=== PATIENT | female | born 1970 | race Caucasian/White ===

== ENCOUNTER → 2016-12-14 | Outpatient (CLI) | payer BC ==
--- NOTE | 2016-12-17 08:40 | REP ---
MRI RIGHT HIP WITHOUT CONTRAST: HISTORY: Right hip osteoarthritis. Right hip pain. No known injury. No comparison radiographs are available. TECHNIQUE: Coronal T1 and fat sat T2 STIR images of both hips are acquired. Smaller field of view high resolution proton density and T2-weighted fat sat imaging of the right hip is acquired in all three planes. MRI FINDINGS: There are several Nabothian cysts in the cervix. No pelvic mass or free fluid or adenopathy is seen. There is a small cystic area in the right ovary, 1.8 cm. No abdominal wall defect is seen. The visualized bony pelvic ring is intact. No significant hip joint effusion is seen on either side. There is mild soft tissue edema in the soft tissues adjacent to the greater trochanter on both sides which may reflect tendonitis or bursitis. This is more prominent on the right. There are multiple subcortical cysts in the acetabulum on the right and there is some diffuse cartilage loss consistent with osteoarthropathy. Early marginal osteophyte formation is seen. No cartilage labral disruption is appreciated. Ligamentum teres appears to be intact. There is no evidence of avascular necrosis or bony destructive lesion. T2-weighted STIR images demonstrate some T2 hyperintensity at the common tendon insertion of the hamstring mechanism on the right side. No vascular abnormality is seen. T2-weighted STIR images demonstrate multiple subcortical cysts in the acetabulum on the left side as well consistent with essentially symmetric arthropathy. IMPRESSION: Findings most consistent with bilateral hip joint osteoarthritis. There is also evidence of tendonitis at the hamstring insertion on the ischium and at the greater trochanter on the right side. Signed by Levi Parker MD 12/17/2016 12:57 P
== END ==
LOC: M RAD 16:36
PROVIDERS: ATTEND Orthopaedic Surgery
DX: M16.11 Unilateral primary osteoarthritis, right hip (principal)

== ENCOUNTER → 2016-12-26 | Outpatient (REF) | payer BC ==
[2016-12-26 18:43] LABS: ALBUMIN/GLOBULIN RATIO 1.43 (1.00-1.93); ALKALINE PHOSPHATASE 98 U/L (45-117); ALT/SGPT 28 U/L (12-78); ANION GAP 8 MEQ/L (8-16); AST/SGOT 17 U/L (15-37); BILIRUBIN,TOTAL 0.5 MG/DL (0.2-1.0); BLOOD UREA NITROGEN 11 MG/DL (7-18); CALCIUM LEVEL 8.7 MG/DL (8.5-10.1); CARBON DIOXIDE LEVEL 24 MEQ/L (21-32); CHLORIDE LEVEL 107 MEQ/L (98-107); CHOLESTEROL LEVEL 162 MG/DL (<200); CREATININE FOR GFR 0.88 MG/DL (0.55-1.02); FREE T4 1.04 NG/DL (0.76-1.46); GLOMERULAR FILTRATION RATE > 60.0 (>58); GLUCOSE, FASTING 88 MG/DL (70-105); SODIUM LEVEL 139 MEQ/L (136-145); TOTAL PROTEIN 6.8 GM/DL (6.4-8.2); TRIGLYCERIDES LEVEL 162 MG/DL (<150)
[2016-12-26 19:52] LABS: BASO # 0.1 K/mm3 (0.0-0.2); BASO % 0.9 % (0.0-1.0); EOS # 0.2 K/mm3 (0.0-0.50); EOS % 3.3 % (0.0-3.0); LARGE UNSTAINED CELL # 0.1 K/mm3 (0.0-0.4); LARGE UNSTAINED CELL % 1.4 % (0.0-4.0); LYMPH # 1.5 K/mm3 (1.5-4.5); LYMPH % 21.7 % (24.0-44.0); MEAN CORPUSCULAR HEMOGLOBIN 33.2 pg (27.0-33.0); MEAN CORPUSCULAR HGB CONC 34.7 g/dl (32.0-36.5); MEAN CORPUSCULAR VOLUME 95.5 fl (80.0-96.0); MONO # 0.4 K/mm3 (0.0-0.8); MONO % 5.7 % (0.0-5.0); NEUTROPHILS # 4.8 K/mm3 (1.8-7.7); PLATELET COUNT, AUTOMATED 326 k/mm3 (150-450); RED CELL DISTRIBUTION WIDTH 12.7 % (11.5-14.5); WHITE BLOOD COUNT 7.1 K/mm3 (4.0-10.0)
== END ==
LOC: M SFHCCAPE 06:59
PROVIDERS: ATTEND Physician Assistant
DX: E78.2 Mixed hyperlipidemia (principal)

== ENCOUNTER → 2017-06-24 | Outpatient (REF) | payer BC | LOC: M SFHCCAPE 16:29 | PROVIDERS: ATTEND Physician Assistant | DX: R30.0 Dysuria (principal) ==

== ENCOUNTER → 2017-07-01 | Outpatient (REF) | payer BC ==
[2017-07-01 17:52] LABS: ALBUMIN 3.7 GM/DL (3.2-5.2); ALBUMIN/GLOBULIN RATIO 1.06 (1.00-1.93); BILIRUBIN,TOTAL 0.4 MG/DL (0.2-1.0); CALCIUM LEVEL 8.7 MG/DL (8.5-10.1); CREATININE FOR GFR 1.05 MG/DL (0.55-1.02); FREE T4 0.81 NG/DL (0.76-1.46); GLOMERULAR FILTRATION RATE 59.3 (>58); POTASSIUM SERUM 4.1 MEQ/L (3.5-5.1); TOTAL PROTEIN 7.2 GM/DL (6.4-8.2)
== END ==
LOC: M SFHCCAPE 07:09
PROVIDERS: ATTEND Physician Assistant
DX: E78.2 Mixed hyperlipidemia (principal); E03.9 Hypothyroidism, unspecified

== ENCOUNTER → 2017-09-16 | Outpatient (CLI) | payer BC | LOC: M WUC 15:04 | DX: J40 Bronchitis, not specified as acute or chronic (principal) | CPT/HCPCS: 71046 ==

== ENCOUNTER → 2017-10-01 | Outpatient (REF) | payer BC ==
[2017-10-01 16:22] LABS: BASO # 0.1 10^3/uL (0.0-0.2); BASO % 0.7 % (0.0-1.0); EOS # 0.2 10^3/uL (0.0-0.50); EOS % 1.6 % (0.0-3.0); HEMATOCRIT 40.7 % (36.0-47.0); HEMOGLOBIN 14.1 g/dl (12.0-16.0); IMMATURE GRANULOCYTE % 0.6 % (0-3.0); LYMPH # 2.3 10^3/uL (1.5-4.5); LYMPH % 23.7 % (24.0-44.0); MEAN CORPUSCULAR HEMOGLOBIN 32.6 pg (27.0-33.0); MEAN CORPUSCULAR HGB CONC 34.6 g/dl (32.0-36.5); MONO # 0.7 10^3/uL (0.0-0.8); MONO % 7.2 % (0.0-5.0); NEUTROPHILS # 6.4 10^3/uL (1.8-7.7); NEUTROPHILS % 66.2 % (36.0-66.0); PLATELET COUNT, AUTOMATED 305 10^3/uL (150-450); RED BLOOD COUNT 4.33 10^6/uL (4.00-5.40); RED CELL DISTRIBUTION WIDTH 12.4 % (11.5-14.5); WHITE BLOOD COUNT 9.7 10^3/uL (4.0-10.0)
[2017-10-01 16:44] LABS: ALBUMIN 3.4 GM/DL (3.2-5.2); ALKALINE PHOSPHATASE 84 U/L (45-117); ALT/SGPT 21 U/L (12-78); ANION GAP 6 MEQ/L (8-16); AST/SGOT 13 U/L (7-37); BILIRUBIN,TOTAL 0.5 MG/DL (0.2-1.0); BLOOD UREA NITROGEN 14 MG/DL (7-18); CALCIUM LEVEL 8.4 MG/DL (8.5-10.1); CARBON DIOXIDE LEVEL 26 MEQ/L (21-32); CHLORIDE LEVEL 112 MEQ/L (98-107); CHOLESTEROL LEVEL 203 MG/DL (<200); CHOLESTEROL RISK RATIO 4.613 (<5); CREATININE FOR GFR 0.84 MG/DL (0.55-1.30); FREE T4 0.83 NG/DL (0.76-1.46); GLOMERULAR FILTRATION RATE > 60.0 (>58); GLUCOSE, FASTING 90 MG/DL (70-100); HDL CHOLESTEROL 44 MG/DL (>40); LDL CHOLESTEROL 95.2 MG/DL (<100); NON-HDL-C 159 MG/DL; POTASSIUM SERUM 4.3 MEQ/L (3.5-5.1); SODIUM LEVEL 144 MEQ/L (136-145); TOTAL PROTEIN 6.8 GM/DL (6.4-8.2); TRIGLYCERIDES LEVEL 319 MG/DL (<150)
== END ==
LOC: M SFHCCAPE 07:33
DX: E78.2 Mixed hyperlipidemia (principal); E03.9 Hypothyroidism, unspecified
CPT/HCPCS: 84443

== ENCOUNTER → 2018-02-06 | Outpatient (CLI) | payer BC | LOC: M WHC 06:42 | DX: Z12.31 Encounter for screening mammogram for malignant neoplasm of breast (principal) | CPT/HCPCS: 77067 ==

== ENCOUNTER 2018-03-26 12:18 | Outpatient (RCR) | payer BC | END 2018-04-13 | LOC: M PT 04-03 13:15 | DX: M54.5 Low back pain (principal); M16.11 Unilateral primary osteoarthritis, right hip; G89.29 Other chronic pain | CPT/HCPCS: 97010 ==

== ENCOUNTER 2018-04-15 07:26 | Outpatient (RCR) | payer BC | END 2018-05-14 | LOC: M PT 04-17 07:30 | DX: M54.5 Low back pain (principal); M16.11 Unilateral primary osteoarthritis, right hip; G89.29 Other chronic pain | CPT/HCPCS: 97110 ==

== ENCOUNTER → 2018-04-23 | Outpatient (REF) | payer BC ==
[2018-04-25 16:53] LABS: HPV HYBRID CAPTURE II Negative (Negative)
== END ==
LOC: M SFHCWAGY 08:45
DX: Z12.4 Encounter for screening for malignant neoplasm of cervix (principal)
CPT/HCPCS: G0123

== ENCOUNTER → 2018-07-01 | Outpatient (REF) | payer BC ==
[2018-07-01 17:23] LABS: BASO # 0.1 10^3/uL (0.0-0.2); EOS # 0.1 10^3/uL (0.0-0.50); EOS % 1.5 % (0.0-3.0); HEMATOCRIT 41.7 % (36.0-47.0); HEMOGLOBIN 14.1 g/dl (12.0-15.5); LYMPH # 1.8 10^3/uL (1.5-4.5); LYMPH % 21.4 % (24.0-44.0); MEAN CORPUSCULAR HGB CONC 33.8 g/dl (32.0-36.5); MEAN CORPUSCULAR VOLUME 94.8 fl (80.0-96.0); MONO # 0.6 10^3/uL (0.0-0.8); MONO % 7.1 % (0.0-5.0); NEUTROPHILS # 5.8 10^3/uL (1.8-7.7); NEUTROPHILS % 68.6 % (36.0-66.0); PLATELET COUNT, AUTOMATED 324 10^3/uL (150-450); WHITE BLOOD COUNT 8.4 10^3/uL (4.0-10.0)
[2018-07-01 17:44] LABS: ALBUMIN 3.6 GM/DL (3.2-5.2); ALT/SGPT 28 U/L (12-78); BILIRUBIN,TOTAL 0.3 MG/DL (0.2-1.0); BLOOD UREA NITROGEN 16 MG/DL (7-18); CALCIUM LEVEL 8.5 MG/DL (8.5-10.1); CARBON DIOXIDE LEVEL 26 MEQ/L (21-32); CHLORIDE LEVEL 108 MEQ/L (98-107); CHOLESTEROL LEVEL 184 MG/DL (<200); CREATININE FOR GFR 0.99 MG/DL (0.55-1.30); GLOMERULAR FILTRATION RATE > 60.0 (>51); GLUCOSE, FASTING 93 MG/DL (70-100); HDL CHOLESTEROL 40 MG/DL (>40); LDL CHOLESTEROL 101 MG/DL (<100); NON-HDL-C 144 MG/DL; POTASSIUM SERUM 4.2 MEQ/L (3.5-5.1); SODIUM LEVEL 142 MEQ/L (136-145); TRIGLYCERIDES LEVEL 214 MG/DL (<150)
== END ==
LOC: M SFHCCAPE 07:01
PROVIDERS: ATTEND Physician Assistant
DX: E78.2 Mixed hyperlipidemia (principal); E03.9 Hypothyroidism, unspecified

== ENCOUNTER 2018-09-10 06:31 | Day surgery (SDC) | payer BC ==
[~2018-09-10] VITALS: Ht 162.6 cm; Wt 91.2 kg
[~2018-09-10 06:31] MED LIST: NS 1,000 ML IV ONE
[2018-09-10] MEDS ORDERED: LIDOCAINE 2% INJ 100 MG/5 ML SDV (FOR ANES.) As Ordered ONE (07:00)
[2018-09-10] MEDS ORDERED: PROPOFOL 200 MG/20 ML VIAL As Ordered ONE (07:00)
[2018-09-10] MEDS ORDERED: LEVO75TA4 PO (07:44)
[2018-09-10] MEDS ORDERED: PRAV40TA2 PO (07:44)
[2018-09-10] MEDS ORDERED: CENTCHW3 PO (07:44)
--- NOTE | 2018-09-10 08:36 | ROOR ---
Patient Name: Giancarlo Govea Procedure Date: 09/10/2018 8:01 AM Date of : 1970 Age: 48 [facility] Gender: Female Note Status: Finalized Procedure: Colonoscopy Indications: Screening for colorectal malignant neoplasm Providers: Myles Chávez MD Referring MD: Ramin Joseph Requesting Provider: Medicines: Monitored Anesthesia Care Complications: No immediate complications. Procedure: Pre-Anesthesia Assessment: - Prior to the procedure, a History and Physical was performed, and patient medications and allergies were reviewed. The patient is competent. The risks and benefits of the procedure and the sedation options and risks were discussed with the patient. All questions were answered and informed consent was obtained. Patient identification and proposed procedure were verified by the physician, the nurse and the anesthesiologist in the endoscopy suite. Mental Status Examination: alert and oriented. Airway Examination: normal oropharyngeal airway and neck mobility. Respiratory Examination: clear to auscultation. CV Examination: normal. Prophylactic Antibiotics: The patient does not require prophylactic antibiotics. Prior Anticoagulants: The patient has taken no previous anticoagulant or antiplatelet agents. ASA Grade Assessment: II - A patient with mild systemic disease. After reviewing the risks and benefits, the patient was deemed in satisfactory condition to undergo the procedure. The anesthesia plan was to use monitored anesthesia care (MAC). Immediately prior to administration of medications, the patient was re-assessed for adequacy to receive sedatives. The heart rate, respiratory rate, oxygen saturations, blood pressure, adequacy of pulmonary ventilation, and response to care were monitored throughout the procedure. The physical status of the patient was re-assessed after the procedure. The Colonoscope was introduced through the anus and advanced to the cecum, identified by appendiceal orifice and ileocecal valve. The colonoscopy was performed without difficulty. The patient tolerated the procedure well. The quality of the bowel preparation was good. Findings: Hemorrhoids were found on perianal exam. A few small-mouthed diverticula were found in the sigmoid colon, descending colon and transverse colon. A diminutive polyp was found in the transverse colon. The polyp was flat. The polyp was removed with a cold snare. Resection and retrieval were complete. Estimated blood loss was minimal. A diminutive polyp was found in the sigmoid colon. The polyp was sessile. The polyp was removed with a cold snare. Resection and retrieval were complete. No biopsies or other specimens were collected for this exam. No additional abnormalities were found on retroflexion. Impression: - Hemorrhoids found on perianal exam. - Diverticulosis in the sigmoid colon, in the descending colon and in the transverse colon. - One diminutive polyp in the transverse colon, removed with a cold snare. Resected and retrieved. - One diminutive polyp in the sigmoid colon, removed with a cold snare. Resected and retrieved. No specimens collected. Recommendation: - Discharge patient to home (ambulatory). - Repeat colonoscopy in 5 years for surveillance. - Telephone my office for pathology results in 1 week. Myles Chávez MD Myles Chávez MD 09/10/2018 8:36:10 AM This report has been signed electronically. Number of Addenda: 0 Note Initiated On: 09/10/2018 8:01 AM Estimated Blood Loss: Estimated blood loss was minimal.
[2018-09-10 09:00] VITALS: BP 130/80
== END 2018-09-10 09:23 | disposition home or self-care (01) ==
LOC: M OPP 06:31
PROVIDERS: ATTEND Surgery
DX: Z12.11 Encounter for screening for malignant neoplasm of colon (principal); K64.9 Unspecified hemorrhoids; D12.3 Benign neoplasm of transverse colon; D12.5 Benign neoplasm of sigmoid colon; K57.30 Diverticulosis of large intestine without perforation or abscess without bleeding; F17.210 Nicotine dependence, cigarettes, uncomplicated; Z88.0 Allergy status to penicillin

== ENCOUNTER → 2019-02-26 | Outpatient (REF) | payer BC ==
[~2019-02-26] MED LIST changes: +CENTCHW3 PO; +IBUP80TA PO; +LEVO75TA4 PO; +LEVO88TA3 PO; -NS 1,000 ML IV ONE; +PERC5TAB12 PO; +PRAV20TA2 PO; +PRAV40TA2 PO; +XARE10TA PO
[2019-02-26 17:32] LABS: BASO # 0.1 10^3/uL (0.0-0.2); EOS # 0.1 10^3/uL (0.0-0.50); EOS % 2.2 % (0.0-3.0); HEMATOCRIT 34.8 % (36.0-47.0); HEMOGLOBIN 11.9 g/dl (12.0-15.5); LYMPH # 2.2 10^3/uL (1.5-4.5); LYMPH % 35.6 % (24.0-44.0); MEAN CORPUSCULAR HGB CONC 34.2 g/dl (32.0-36.5); MEAN CORPUSCULAR VOLUME 93.5 fl (80.0-96.0); MONO # 0.5 10^3/uL (0.0-0.8); MONO % 7.3 % (0.0-5.0); NEUTROPHILS # 3.4 10^3/uL (1.8-7.7); NEUTROPHILS % 53.6 % (36.0-66.0); PLATELET COUNT, AUTOMATED 281 10^3/uL (150-450); RED BLOOD COUNT 3.72 10^6/uL (4.00-5.40); WHITE BLOOD COUNT 6.3 10^3/uL (4.0-10.0)
[2019-02-26 18:57] LABS: ALBUMIN 3.7 GM/DL (3.2-5.2); ALT/SGPT 19 U/L (12-78); BILIRUBIN,TOTAL 0.4 MG/DL (0.2-1.0); BLOOD UREA NITROGEN 15 MG/DL (7-18); CALCIUM LEVEL 8.8 MG/DL (8.5-10.1); CARBON DIOXIDE LEVEL 28 MEQ/L (21-32); CHLORIDE LEVEL 110 MEQ/L (98-107); CHOLESTEROL LEVEL 156 MG/DL (<200); CHOLESTEROL RISK RATIO 3.466 (<5); CREATININE FOR GFR 0.86 MG/DL (0.55-1.30); FREE T4 0.84 NG/DL (0.76-1.46); GLOMERULAR FILTRATION RATE > 60.0 (>51); GLUCOSE, FASTING 86 MG/DL (70-100); HDL CHOLESTEROL 45 MG/DL (>40); LDL CHOLESTEROL 83 MG/DL (<100); NON-HDL-C 111 MG/DL; SODIUM LEVEL 144 MEQ/L (136-145); TOTAL PROTEIN 6.6 GM/DL (6.4-8.2); TRIGLYCERIDES LEVEL 142 MG/DL (<150)
== END ==
LOC: M SFHCCAPE 07:04
PROVIDERS: ATTEND Physician Assistant
DX: E78.2 Mixed hyperlipidemia (principal); E03.9 Hypothyroidism, unspecified

== ENCOUNTER → 2019-03-24 | Outpatient (CLI) | payer BC ==
[~2019-03-24] MED LIST changes: -PERC5TAB12 PO; -XARE10TA PO
[2019-03-24 09:04] LABS: HEMATOCRIT 38.8 % (36.0-47.0); HEMOGLOBIN 13.7 g/dl (12.0-15.5); MEAN CORPUSCULAR HEMOGLOBIN 33.6 pg (27.0-33.0); MEAN CORPUSCULAR HGB CONC 35.3 g/dl (32.0-36.5); MEAN CORPUSCULAR VOLUME 95.1 fl (80.0-96.0); PLATELET COUNT, AUTOMATED 254 10^3/uL (150-450); RED BLOOD COUNT 4.08 10^6/uL (4.00-5.40); WHITE BLOOD COUNT 6.1 10^3/uL (4.0-10.0)
[2019-03-24 09:15] LABS: INR 0.99; PROTHROMBIN TIME 12.8 SECONDS (11.8-14.0)
[2019-03-24 09:39] LABS: ALT/SGPT 27 U/L (12-78); BILIRUBIN,TOTAL 0.4 MG/DL (0.2-1.0); BLOOD UREA NITROGEN 15 MG/DL (7-18); CALCIUM LEVEL 9.3 MG/DL (8.5-10.1); CARBON DIOXIDE LEVEL 28 MEQ/L (21-32); CHLORIDE LEVEL 109 MEQ/L (98-107); CREATININE FOR GFR 0.95 MG/DL (0.55-1.30); GLOMERULAR FILTRATION RATE > 60.0 (>51); GLUCOSE, FASTING 90 MG/DL (70-100); POTASSIUM SERUM 4.6 MEQ/L (3.5-5.1); SODIUM LEVEL 144 MEQ/L (136-145)
[2019-03-24 09:40] LABS: ERYTHROCYTE SEDIMENTATION RATE 29 mm/hr (0-30)
--- NOTE | 2019-03-24 11:56 | REP ---
CHEST, TWO VIEWS: There is no evidence of acute infiltrate. No pleural effusion is seen. The heart is normal in size. The mediastinal silhouette is unremarkable. The visualized osseous structures are intact. IMPRESSION: No acute pulmonary disease. Electronically Signed by Jared Yo MD 03/25/2019 11:17 A
--- NOTE | 2019-03-24 18:23 | ECGEPIP ---
[facility] Test Date: 2019-03-24 Pat Name: LORI CHENG Department: Room: - Gender: Female Etcher Photoengraving: MICHI : 1970 Requested By: Myron Marie Order Number: [id number] Reading MD: John Barber Measurements Intervals [place] Rate: 50 P: 61 MS: 149 QRS: 44 QRSD: 102 T: 37 QT: 415 QTc: 382 Interpretive Statements SINUS BRADYCARDIA Otherwise normal Electronically Signed on 03-24-2019 18:23:20 EDT by John Barber
== END ==
LOC: M LAB 08:33
PROVIDERS: ATTEND Orthopaedic Surgery
DX: Z01.818 Encounter for other preprocedural examination (principal)

== ENCOUNTER → 2019-04-01 | Outpatient (CLI) | payer BC ==
--- NOTE | 2019-04-01 13:34 | REPMRS ---
Patient History The patient states she has not had a clinical breast exam in over a year. Family history of ovarian cancer under age 50 in maternal half sister. Benign US guided breast biopsy of the right breast, January 11, 2012. Took hormonal contraceptives for 1 year. 3D TOMOSYNTHESIS WAS PERFORMED. [facility] lifetime risk for breast cancer is 8.0%. Digital Woman Screen Mammo: April 01, 2019 - Exam #: [id number] Bilateral CC and MLO view(s) were taken. Technologist: Yoly Townsend, Technologist Prior study comparison: February 06, 2018, bilateral digital woman screen mammo performed at [facility]. June 03, 2014, digital woman screen mammo [facility]. FINDINGS: The breast tissue is heterogeneously dense. This may lower the sensitivity of mammography. There has been no change in the appearance of the mammogram from the prior studies. There is a moderate amount of residual fibroglandular tissue which is fairly symmetric. There is no interval development of dominant mass, areas of architectural distortion, or clustered microcalcification typical of malignancy. Assessment: BI-RADS/ACR category 1 mammogram. Negative Mammogram. Recommendation Routine screening mammogram in 1 year (for women over age 40). This mammogram was interpreted with the aid of an FDA-approved computer-aided dectection system. Electronically Signed By: Jared Yo MD 04/01/19 [id number]
== END ==
LOC: M WHC 11:21
PROVIDERS: ATTEND Physician Assistant
DX: Z12.31 Encounter for screening mammogram for malignant neoplasm of breast (principal)

== ENCOUNTER 2019-04-13 06:04 | Inpatient (IN) | payer BC ==
[~2019-04-13] VITALS: Ht 162.6 cm; Wt 79.3 kg
[~2019-04-13 06:04] MED LIST changes: +LEVOTHYROXINE 100MCG TABLET (0.1MG) PO SCH; +LR 1,000 ML IV ONE
[2019-04-13] MEDS ORDERED: ceFAZolin 2 GM/D5W 50 ML IV BAG (J0690 PER 500MG) As Ordered ONE (06:21)
[2019-04-13] MEDS ORDERED: EPINEPHrine INJ 1 MG/ML 1ML AMP As Ordered ONE (06:50)
[2019-04-13] MEDS ORDERED: TRANEXAMIC ACID 100 MG/ML 10ML VIAL As Ordered ONE (06:50)
[2019-04-13] MEDS ORDERED: ceFAZolin 1GM INJ (J0690 PER 500MG) As Ordered ONE (06:50)
[2019-04-13] MEDS ORDERED: BUPIVACAINE/EPIN 0.25% 30 ML VIAL As Ordered ONE (06:50)
[2019-04-13] MEDS ORDERED: BUPIVACAINE HCL 0.5% 10 ML VIAL As Ordered ONE (06:50)
[2019-04-13] MEDS ORDERED: BUPIVACAINE LIPOSOME/PF 1.3% 20ML VIAL (13.3MG/ML)(EXPAREL)(C9290 PER1MG) As Ordered ONE (06:51)
[2019-04-13] MEDS ORDERED: PROPOFOL 200 MG/20 ML VIAL As Ordered ONE ×3 (07:11→11:08)
[2019-04-13] MEDS ORDERED: LIDOCAINE 2% INJ 100 MG/5 ML SDV (FOR ANES.) As Ordered ONE (07:11)
[2019-04-13] MEDS ORDERED: MIDAZOLAM INJ 2 MG/2 ML VIAL (J2250) As Ordered ONE (07:11)
[2019-04-13] MEDS ORDERED: fentaNYL 100 MCG/2 ML INJECTION (J3010) As Ordered ONE (07:12)
[2019-04-13] MEDS ORDERED: ePHEDrine SULFATE 25 MG/5 ML(5MG/ML) SYRINGE As Ordered ONE (08:13)
[2019-04-13] MEDS ORDERED: ONDANSETRON 4MG/2ML VIAL (J2405) As Ordered ONE (08:39)
[2019-04-13] MEDS ORDERED: dexameTHASONE 4 MG/ML 1ML VIAL (J1100) As Ordered ONE (08:39)
[2019-04-13] MEDS ORDERED: ACETAMINOPHEN 1000MG 100ML IV BTL (OFIRMEV) (J0131 PER 10MG) As Ordered ONE (08:39)
[2019-04-13] MEDS ORDERED: KETOROLAC 60 MG/2 ML VIAL (J1885) As Ordered ONE (08:39)
[2019-04-13] MEDS: GABAPENTIN 300 MG CAP PO SCH ×3 (09:00→20:17)
[2019-04-13] MEDS ORDERED: ALBUTEROL 90 MCG/ACT 8GM HFA INHALER INH PRN (09:00)
[2019-04-13] MEDS ORDERED: PRAVASTATIN 20 MG TAB PO SCH ×2 (09:00→21:00)
[2019-04-13] MEDS ORDERED: HYDROMORPHONE HCL 0.5 MG/ 0.5 ML SYRINGE (J1170 PER 1) IV PRN (10:30)
[2019-04-13] MEDS ORDERED: BUPIVACAINE HCL 0.5% 30 ML VIAL As Ordered ONE (10:41)
[2019-04-13] MEDS ORDERED: METOCLOPRAMIDE INJ 10MG/2ML VIAL (J2765) IV PRN (11:00)
[2019-04-13] MEDS ORDERED: ONDANSETRON 4MG/2ML VIAL (J2405) IV PRN (11:00)
[2019-04-13] MEDS ORDERED: PROMETHAZINE INJ 25 MG/ML VIAL (J2550) IV PRN ×2 (11:00)
[2019-04-13] MEDS ORDERED: oxyCODONE 5MG TAB PO PRN (11:00)
[2019-04-13] MEDS ORDERED: fentaNYL 100 MCG/2 ML INJECTION (J3010) IV PRN (11:00)
[2019-04-13] MEDS ORDERED: ACETAMINOPHEN TAB 650MG DOSE (2X325MG) PO PRN (11:00)
[2019-04-13] MEDS ORDERED: FLEET ENEMA PR PRN (11:15)
--- NOTE | 2019-04-13 11:18 | REP ---
REASON: Postoperative. There has been a total hip prosthetic device placed the femoral and acetabular components of which are well seated and well approximated. The alignment is near anatomical. There is expected postoperative soft tissue swelling. IMPRESSION: Status post THR. Electronically Signed by Eloy Banda DO 04/13/2019 02:37 P
[2019-04-13] MEDS ORDERED: CelecoXIB 400 MG CAP PO ONE ×2 (12:00→13:00)
[2019-04-13] MEDS ORDERED: CYCLOBENZAPRINE 10 MG TAB PO PRN (13:00)
[2019-04-13 13:29] VITALS: BP 112/60
[2019-04-13 13:59] VITALS: BP 118/65
[2019-04-13 15:00] VITALS: BP 114/64
[2019-04-13 16:00] VITALS: BP 115/65
[2019-04-13] MEDS: ceFAZolin SOD 2 GM in IV 1 EA IV SCH (16:19)
[2019-04-13] MEDS: PERCOCET 5MG/325MG TAB PO PRN ×2 (16:35→20:40)
[2019-04-13] MEDS: MIRALAX *UNIT DOSE* 17GM PACKET PO SCH (17:10)
[2019-04-13] MEDS: MOM 30ML SUSPENSION UDC PO SCH (17:10)
[2019-04-13 20:00] VITALS: BP 116/63
[2019-04-13] MEDS: SENOKOT S TAB PO SCH (20:17)
[2019-04-14] MEDS: ceFAZolin SOD 2 GM in IV 1 EA IV SCH (00:52)
[2019-04-14] MEDS: PERCOCET 5MG/325MG TAB PO PRN ×2 (01:38→08:43)
[2019-04-14 02:00] VITALS: BP 95/57
[2019-04-14 04:00] VITALS: BP 97/57
[2019-04-14] MEDS ORDERED: LEVOTHYROXINE 88MCG TABLET (0.088 MG) PO SCH (06:00)
[2019-04-14] MEDS ORDERED: XARE10TA PO (06:22)
[2019-04-14] MEDS ORDERED: PERC5TAB12 PO (06:22)
[2019-04-14 07:02] LABS: HEMATOCRIT 30.8 % (36.0-47.0); HEMOGLOBIN 10.6 g/dl (12.0-15.5); MEAN CORPUSCULAR HEMOGLOBIN 32.8 pg (27.0-33.0); MEAN CORPUSCULAR HGB CONC 34.4 g/dl (32.0-36.5); MEAN CORPUSCULAR VOLUME 95.4 fl (80.0-96.0); PLATELET COUNT, AUTOMATED 237 10^3/uL (150-450); RED BLOOD COUNT 3.23 10^6/uL (4.00-5.40); WHITE BLOOD COUNT 11.4 10^3/uL (4.0-10.0)
--- NOTE | 2019-04-14 08:06 | RO ---
DATE OF PROCEDURE: 04/13/2019 PREOPERATIVE DIAGNOSIS: Osteoarthritis of the right hip. POSTOPERATIVE DIAGNOSIS: Osteoarthritis of the right hip. PROCEDURE PERFORMED: Right total hip replacement. SURGEON: Dr. Myrno Iqbal FAILURE ANALYSIS ENGINEER: Bridger Telles, physician equity sales assistant ANESTHESIA: Spinal. Dr. Penn ESTIMATED BLOOD LOSS: Less than 100. COMPLICATIONS: No complications. INDICATIONS: Progressive discomfort in the right hip going on over a number of years, a number of conservative managements including weight loss and cortisone injections failed to give lasting relief. The patient has elected for operative intervention. CONSENT: Reviewed in detail including a sigrid discussion of the pathology involved, the procedure proposed, alternatives including doing nothing and the risks including, but not limited to pain, failure, dislocation, need for additional surgery, bleeding, blood clots, limp, dislocation and other issues. The patient agreed to proceed. COMPONENTS USED: Include DePuy Fleming system, size 4 femoral stem, size +5 femoral neck. The stem was standard offset, ceramic 36 mm femoral head, 52 mm acetabular component, 52 mm AltrX shell/36 mm inner diameter, apex hole eliminator. OPERATIVE COURSE: Identified in holding area, site and side verified, brought to the operating room. Once spinal anesthesia was administered she was positioned for exposure of the right hip for arthroplasty. This approach is a modified Hardinge approach. She was positioned in the lateral decubitus position on the [place] positioner. Once I and the neurodiagnostic technician were comfortable with the patient's positioning, she was then sterilely prepped and draped in the usual fashion. I stood on the patient's posterior and Mr. López stood on the patient's anterior. We outlined the incision with a marking pen. Mr. López infiltrated 0.25% Marcaine with epinephrine in line of the incision which was based on the greater trochanter. The incision was made by myself with the 10 blade knife and developed down through skin and subcuticular tissues to the lateral fascia. The lateral fascia was divided using the sharp knife as well as the Cohen scissors exposing the abductor mechanism. The abductor mechanism was split at its anterior 1/3 position and I split the capsule and minimus with the hot knife along the femoral neck. I released the anterior 1/3 of the abductor mechanism which was tagged, leaving a cuff of tissue for later repair. The vastus lateralis was also split. Dissection continued opening the capsule. I was able to palpate the lesser trochanter. The reflected head of the vastus was also released. Bone hook was utilized along with Mr. López who assisted in positioning the leg for dislocation. I utilized the appropriate retractors secured by Mr. López and then I utilized the canal opening reamer followed by the finding reamer followed by the lateralizing reamer followed by conical reamers through a size 4. A size 4 seemed to fit appropriately. Next template was applied, femoral neck cut was made with the oscillating saw about three-quarter fingerbreadths from the lesser trochanter. Next a hot box checker was utilized to remove marrow from the femoral neck. Broaches were utilized through a size 4, which seemed to fit appropriately. Next the broach was removed. Anterior and posterior retractors were placed and secured by Mr. Yeager. I then cleared the floor of the acetabular fossa of soft tissue and removed remnants of the acetabular labrum with a Bovie cautery. Next, the transverse acetabular ligament was also removed. Next, once this was exposed, I utilized hemispherical reamers from a size 47 to ream to the floor of the acetabulum and we reamed up through a size 51. A 52 trial was installed and seemed to fit securely. The targeting device was utilized. This was then removed. Irrigation was accomplished using pulse lavage and also TXA was applied. Next the non-trial acetabulum was installed using the acetabular targeting device. IT was tamped into place. We verified the acetabulum was in the floor of the acetabulum and then placed the apex hole eliminator followed by the AltrX 36 mm liner. This was tamped into place with a nylon impactor. Next, once this was accomplished, attention was turned to the femoral side. The trial femoral stem was installed. We trialed with a +1.5, followed by a +5 neck length. The +5 neck length fit appropriately with appropriate soft tissue tension and good abductor soft tissue tension. Next, I selected those sizes. The trial components were removed. I obtained the non-trial standard offset stem. It was impacted into place. I installed the 36 mm non-trial ceramic femoral head, which was gently tamped into place using a nylon impactor. Next, the hip was reduced. It was again placed through a range of motion and found to be stable in internal rotation and adduction as well as external rotation and extension. Soft tissue tension was appropriate. We then instilled approximately 40 mL of Exparel solution around the femoral hip capsule and the subcuticular soft tissues. Then, Mr. López secured the retractors to allow closure of the capsule followed by mattress closure of the abductor mechanism to the of cuff tissue on the greater trochanter as well as [id number]. The lateral fascia to the vastus lateralis was also reapproximated with interrupted and running stitch. The lateral fascia was approximated with interrupted stitch and a Stratafix stitch. The deep dermis was approximated with interrupted stitches and a Pernio dressing was applied. Pulse lavage irrigation had been accomplished prior to closure. Next, once the Pernio was applied, the patient was moved to the hospital bed in the supine position with a pillow between the knees and moved to the recovery room in good condition. For further details, please refer to medical record. Mr. López was present and participated in the entirety of the case in the capacity of printer floor covering assistant.
[2019-04-14] MEDS: SENOKOT S TAB PO SCH (08:41)
[2019-04-14] MEDS: MOM 30ML SUSPENSION UDC PO SCH (08:41)
[2019-04-14] MEDS: GABAPENTIN 300 MG CAP PO SCH (08:41)
[2019-04-14] MEDS: MIRALAX *UNIT DOSE* 17GM PACKET PO SCH (08:44)
[2019-04-14] MEDS ORDERED: CelecoXIB 400 MG CAP PO ONE (09:00)
[2019-04-14] MEDS ORDERED: CelecoXIB 400 MG CAP PO SCH (09:00)
[2019-04-14] MEDS ORDERED: RIVAROXABAN 10 MG TAB (XARELTO) PO SCH (18:00)
--- NOTE | 2019-04-16 14:34 | DSES ---
DATE OF ADMISSION: 04/13/2019 DATE OF DISCHARGE: 04/14/2019 ATTENDING PHYSICIAN: Dr. Myron Iqbal ADMISSION DIAGNOSIS: Right osteoarthritis right hip. OTHER DIAGNOSES: Hypothyroidism. Hyperlipidemia. DISCHARGE DIAGNOSIS: Osteoarthritis right hip status post right total hip arthroplasty. OPERATION PERFORMED: Right total hip arthroplasty. HISTORY: This is a 48-year-old female patient with progressively worsening right hip pain and stiffness. She failed to improve with conservative management. She was admitted for elective hip replacement on the right side. HOSPITAL COURSE: The patient was admitted on the day of surgery and underwent a right total hip arthroplasty, which was uneventful. She did well in the postoperative period and was up with physical therapy per their protocol. Pain was controlled on the day of discharge and she was doing well weightbearing as tolerated on the right lower extremity. Thromboembolic deterrent (KIM) stockings will be used along with deep venous thrombosis (DVT) prophylaxis per protocol. She will resume her preoperative medications and diet along with oral pain medications for pain control. Instructions were given to include but not limited to wound monitoring activity limitations. She will followup in our office in 10-14 days for surgical followup. Please see medical record for further details.
== END 2019-04-14 13:15 | disposition home or self-care (01) | DRG 301 ==
LOC: M OR 06:04 → M MS5PR 13:20
PROVIDERS: ADMIT Orthopaedic Surgery; ATTEND Orthopaedic Surgery
PROC: 0SR904Z Replacement of Right Hip Joint with Ceramic on Polyethylene Synthetic Substitute, Open Approach (ICD-10-PCS; principal; 2019-04-13 07:30)
DX: M16.11 Unilateral primary osteoarthritis, right hip (principal); E03.9 Hypothyroidism, unspecified; E78.5 Hyperlipidemia, unspecified; Z87.891 Personal history of nicotine dependence; Z88.1 Allergy status to other antibiotic agents; Z79.899 Other long term (current) drug therapy

== ENCOUNTER → 2019-04-28 | Outpatient (REF) | payer BC ==
[~2019-04-28] MED LIST changes: -LEVOTHYROXINE 100MCG TABLET (0.1MG) PO SCH; -LR 1,000 ML IV ONE; +PERC5TAB12 PO; +XARE10TA PO
[2019-04-28 17:13] LABS: BASO # 0.1 10^3/uL (0.0-0.2); BASO % 1.1 % (0.0-1.0); EOS # 0.1 10^3/uL (0.0-0.5); EOS % 1.6 % (0.0-3.0); HEMATOCRIT 34.1 % (36.0-47.0); HEMOGLOBIN 11.3 g/dl (12.0-15.5); MEAN CORPUSCULAR HEMOGLOBIN 32.3 pg (27.0-33.0); MEAN CORPUSCULAR HGB CONC 33.1 g/dl (32.0-36.5); MEAN CORPUSCULAR VOLUME 97.4 fl (80.0-96.0); MONO # 0.4 10^3/uL (0.0-0.8); MONO % 5.6 % (0.0-5.0); NEUTROPHILS # 4.4 10^3/uL (1.5-8.5); NEUTROPHILS % 62.3 % (36.0-66.0); PLATELET COUNT, AUTOMATED 484 10^3/uL (150-450)
[2019-04-28 17:35] LABS: ALBUMIN 3.4 GM/DL (3.2-5.2); ALT/SGPT 43 U/L (12-78); BILIRUBIN,TOTAL 0.4 MG/DL (0.2-1.0); BLOOD UREA NITROGEN 14 MG/DL (7-18); CALCIUM LEVEL 8.8 MG/DL (8.5-10.1); CARBON DIOXIDE LEVEL 25 MEQ/L (21-32); CHLORIDE LEVEL 109 MEQ/L (98-107); CHOLESTEROL LEVEL 157 MG/DL (<200); CHOLESTEROL RISK RATIO 3.413 (<5); CREATININE FOR GFR 1.02 MG/DL (0.55-1.30); FREE T4 0.86 NG/DL (0.76-1.46); GLOMERULAR FILTRATION RATE > 60.0 (>51); GLUCOSE, FASTING 84 MG/DL (70-100); HDL CHOLESTEROL 46 MG/DL (>40); LDL CHOLESTEROL 86 MG/DL (<100); NON-HDL-C 111 MG/DL; POTASSIUM SERUM 4.5 MEQ/L (3.5-5.1); SODIUM LEVEL 141 MEQ/L (136-145); TOTAL PROTEIN 6.9 GM/DL (6.4-8.2); TRIGLYCERIDES LEVEL 127 MG/DL (<150)
== END ==
LOC: M SFHCCAPE 07:06
PROVIDERS: ATTEND Physician Assistant
DX: E78.2 Mixed hyperlipidemia (principal); E03.9 Hypothyroidism, unspecified

== ENCOUNTER → 2019-05-14 | Outpatient (RCR) | payer BC | LOC: M PT 05-05 15:20 | PROVIDERS: ATTEND Orthopaedic Surgery | DX: Z47.1 Aftercare following joint replacement surgery (principal); Z96.641 Presence of right artificial hip joint ==

== ENCOUNTER 2019-06-09 09:00 | Outpatient (RCR) | payer BC | END 2019-06-13 | LOC: M PT 09:00 | PROVIDERS: ATTEND Orthopaedic Surgery | DX: Z96.641 Presence of right artificial hip joint (principal) ==

== ENCOUNTER → 2019-06-09 | Outpatient (CLI) | payer BC ==
--- NOTE | 2019-06-09 10:42 | REP ---
Clinical: Recent hip replacement. Technique: Neutral and frog lateral views of the right hip. Findings: Right hip replacement is relatively appropriate in appearance. Surrounding soft tissues are unremarkable. Impression: Status post satisfactory right hip replacement. Electronically Signed by Yon Lucero MD 06/09/2019 10:34 A
== END ==
LOC: M RAD 08:32
PROVIDERS: ATTEND Physician Assistant
DX: Z47.1 Aftercare following joint replacement surgery (principal); Z96.641 Presence of right artificial hip joint

== ENCOUNTER 2019-06-19 14:27 | Outpatient (RCR) | payer BC | END 2019-07-14 | LOC: M PT 14:27 | PROVIDERS: ATTEND Orthopaedic Surgery | DX: Z96.641 Presence of right artificial hip joint (principal) ==

== ENCOUNTER → 2019-07-14 | Outpatient (CLI) | payer BC ==
[2019-07-14 17:53] LABS: BASO % 0.2 % (0.0-1.0); HEMOGLOBIN 11.9 g/dl (12.0-15.5); LYMPH # 0.4 10^3/uL (1.5-5.0); LYMPH % 4.5 % (24.0-44.0); MEAN CORPUSCULAR HEMOGLOBIN 30.9 pg (27.0-33.0); MEAN CORPUSCULAR VOLUME 90.9 fl (80.0-96.0); MONO # 1.1 10^3/uL (0.0-0.8); NEUTROPHILS # 7.5 10^3/uL (1.5-8.5); PLATELET COUNT, AUTOMATED 188 10^3/uL (150-450); RED BLOOD COUNT 3.85 10^6/uL (4.00-5.40); WHITE BLOOD COUNT 9.1 10^3/uL (4.0-10.0)
[2019-07-14 17:55] LABS: BILIRUBIN,TOTAL 0.9 MG/DL (0.2-1.0); CALCIUM LEVEL 8.5 MG/DL (8.5-10.1); CREATININE FOR GFR 1.05 MG/DL (0.55-1.30); GLOMERULAR FILTRATION RATE 58.8 (>51); POTASSIUM SERUM 3.8 MEQ/L (3.5-5.1); TOTAL PROTEIN 6.7 GM/DL (6.4-8.2)
== END ==
LOC: M WUC 11:19
PROVIDERS: ATTEND Physician Assistant
DX: R10.9 Unspecified abdominal pain (principal)

== ENCOUNTER → 2019-07-14 | Outpatient (REF) | payer BC | LOC: M LAB REF 16:32 | PROVIDERS: ATTEND Physician Assistant | DX: R10.9 Unspecified abdominal pain (principal) ==

== ENCOUNTER → 2019-08-25 | Outpatient (REF) | payer BC | LOC: M SFHCWAGY 18:32 | PROVIDERS: ATTEND Nurse Practitioner Women's Health | DX: Z12.4 Encounter for screening for malignant neoplasm of cervix (principal) ==

== ENCOUNTER → 2019-09-03 | Outpatient (REF) | payer BC ==
[2019-09-03 12:44] LABS: BLOOD UREA NITROGEN 20 MG/DL (7-18); CALCIUM LEVEL 9.3 MG/DL (8.5-10.1); CARBON DIOXIDE LEVEL 29 MEQ/L (21-32); CHLORIDE LEVEL 111 MEQ/L (98-107); CREATININE FOR GFR 0.93 MG/DL (0.55-1.30); GLOMERULAR FILTRATION RATE > 60.0 (>51); GLUCOSE, FASTING 89 MG/DL (70-100); POTASSIUM SERUM 4.2 MEQ/L (3.5-5.1); SODIUM LEVEL 143 MEQ/L (136-145)
[2019-09-03 12:45] LABS: ALBUMIN 3.8 GM/DL (3.2-5.2); ALT/SGPT 21 U/L (12-78); AMYLASE 38 U/L (25-115); BILIRUBIN,TOTAL 0.5 MG/DL (0.2-1.0); LIPASE 98 U/L (73-393); THYROID STIMULATING HORMONE 0.672 uIU/ML (0.358-3.740); TOTAL PROTEIN 6.9 GM/DL (6.4-8.2)
== END ==
LOC: M SFHCCLAY 07:32
PROVIDERS: ATTEND Family Medicine
DX: R10.816 Epigastric abdominal tenderness (principal); R10.811 Right upper quadrant abdominal tenderness; E03.9 Hypothyroidism, unspecified

== ENCOUNTER → 2019-09-09 | Outpatient (CLI) | payer BC ==
--- NOTE | 2019-09-09 09:11 | REP ---
Complete abdominal ultrasound for epigastric abdominal pain: There is a 1.7 x 1.6 x 1.5 cm gallbladder calculus in the gallbladder neck. The gallbladder is distended measuring up to 4.2 cm transverse diameter. However, there is no gallbladder wall thickening or pericholecystic fluid at this time. However, gallbladder iliac obstruction cannot be entirely discounted. There is no intrahepatic or extrahepatic biliary duct dilatation. The common biliary duct measures 5.7 ml in diameter. The hepatic parenchyma is hyperechoic compatible with hepato steatosis. The liver is enlarged measuring 19.0 cm craniocaudad length in the midclavicular line versus artifact from congenital Bekah's lobe of the liver. There is a focal 2.0 x 1.4 cm hyperechoic nodule adjacent to the gallbladder, possibly an hemangioma. The visualized areas of the pancreas are unremarkable. The spleen is normal size measuring 9.6 x 9.7 x 3.0 cm for a splenic index of 279. The splenic parenchyma is homogeneous. Right kidney measures 10.7 x 4.7 x 3.5 cm. Left kidney measures 10.5 x 4.5 x 5.2 cm. The kidneys are normal size. There are no solid or cystic renal masses. There are no renal calculi. There is no hydronephrosis. The proximal aorta measures 2.0 cm diameter. The mid aorta measures 1.8 cm diameter. The distal abdominal aorta measures 1.7 cm diameter. There is no abdominal aortic aneurysm. There is no abdominal ascites. Impression: There is a 1.7-cm gallbladder calculus in the gallbladder neck, possibly wedged in the gallbladder neck. There is no gallbladder wall thickening or pericholecystic fluid to suggest acute cholecystitis at this time, however, the gallbladder is quite distended. There is no biliary duct dilatation. Hepatomegaly versus artifact from right Bekah's lobe. Hepato steatosis. Spleen is normal size. No ascites. No abdominal aortic aneurysm. Electronically Signed by Jared De Oliveira MD 09/09/2019 09:03 A
== END ==
LOC: M RAD 07:34
PROVIDERS: ATTEND Family Medicine
DX: R10.9 Unspecified abdominal pain (principal)

== ENCOUNTER → 2019-11-13 | Outpatient (CLI) | payer BC ==
[~2019-11-13] MED LIST changes: +FAMO20TA PO; +IBUP200T45 PO; +LEVO100T5 PO; +MM S100C PO; +ZYRTTAB8 PO
== END ==
LOC: M LABSMTC 09:36
PROVIDERS: ATTEND Anesthesiology
DX: Z01.818 Encounter for other preprocedural examination (principal); Z11.59 Encounter for screening for other viral diseases

== ENCOUNTER 2019-11-16 06:25 | Day surgery (SDC) | payer BC ==
[~2019-11-16] VITALS: Ht 162.6 cm; Wt 80.7 kg
[~2019-11-16 06:25] MED LIST changes: +LR 1,000 ML IV ONE; +LevoFLOXacin IV 500 MG in IV 1 EA IV ONE
[2019-11-16 06:51] LABS: HEMATOCRIT 40.1 % (36.0-47.0); HEMOGLOBIN 13.4 g/dl (12.0-15.5); MEAN CORPUSCULAR HEMOGLOBIN 31.1 pg (27.0-33.0); MEAN CORPUSCULAR HGB CONC 33.4 g/dl (32.0-36.5); PLATELET COUNT, AUTOMATED 246 10^3/uL (150-450); RED BLOOD COUNT 4.31 10^6/uL (4.00-5.40); WHITE BLOOD COUNT 6.5 10^3/uL (4.0-10.0)
[2019-11-16] MEDS ORDERED: BUPIVACAINE HCL 0.25% 30ML VIAL As Ordered ONE (07:06)
[2019-11-16] MEDS ORDERED: LIDOCAINE 1% SDV 30ML VIAL As Ordered ONE (07:06)
[2019-11-16] MEDS ORDERED: fentaNYL 250 MCG/5 ML INJECTION (J3010) As Ordered ONE (07:14)
[2019-11-16] MEDS ORDERED: MIDAZOLAM INJ 2MG/2ML VIAL (J2250 PER 1MG) As Ordered ONE (07:14)
[2019-11-16] MEDS ORDERED: KETOROLAC 60 MG/2 ML VIAL As Ordered ONE (07:15)
[2019-11-16] MEDS ORDERED: dexameTHASONE 4 MG/ML 1ML VIAL (J1100 PER 1MG) As Ordered ONE (07:15)
[2019-11-16] MEDS ORDERED: ROCURONIUM BROMIDE 50 MG/5 ML VIAL As Ordered ONE (07:15)
[2019-11-16] MEDS ORDERED: propofoL 200 MG/20 ML VIAL As Ordered ONE (07:15)
[2019-11-16] MEDS ORDERED: LIDOCAINE 2% 100MG/5ML SDV (FOR ANES.) As Ordered ONE (07:15)
[2019-11-16] MEDS ORDERED: ONDANSETRON 4MG/2ML VIAL As Ordered ONE (07:15)
[2019-11-16] MEDS ORDERED: ACETAMINOPHEN 1000MG 100ML IV BTL (OFIRMEV) (J0131 PER 10MG) As Ordered ONE (07:15)
[2019-11-16] MEDS ORDERED: LACRILUBE (AKWA TEARS) OPHTH OINT 3.5 GM As Ordered ONE (07:22)
[2019-11-16] MEDS ORDERED: PHENYLephrine HCL 500 MCG/5 ML (100MCG/ML) SYRINGE (J2370) As Ordered ONE (08:06)
[2019-11-16] MEDS ORDERED: SUGAMMADEX SODIUM 500 MG/5 ML VIAL (BRIDION) As Ordered ONE (08:18)
[2019-11-16] MEDS ORDERED: LR 1,000 ML IV SCH (09:45)
[2019-11-16] MEDS ORDERED: fentaNYL 100 MCG/2 ML INJECTION (J3010) IV PRN (09:45)
[2019-11-16] MEDS ORDERED: NORCO, ANEXSIA 5/325MG TABLET (HYDROcodone/ACETAMINOPHEN) PO PRN (09:45)
[2019-11-16] MEDS ORDERED: KETOROLAC 30 MG/ML 1ML VIAL IV PRN (09:45)
[2019-11-16] MEDS ORDERED: ONDANSETRON 4MG/2ML VIAL IV PRN ×2 (09:45)
--- NOTE | 2019-11-16 09:46 | ROOPDOC ---
[facility] Report Of Operation Report of Operation DATE OF PROCEDURE: 11/16/19 PREPROCEDURE DIAGNOSES: cholelithiasis with acute cholecystitis. POSTPROCEDURE DIAGNOSES: Cholelithiasis with hydrops of the gallbladder PROCEDURE: Robotic-assisted laparoscopic cholecystectomy. , right Transversus abdominis plane block (1/4%marcaine, 1% lidocaine) under laparoscopic guidance SURGEON: Myles Chávez MD ASSEMBLER TRACTOR: Shirlene Snow NP (Pamela Edy assisted me with placement of the troc hars, docking the robot, management of the robotic instruments on the field while I was at the surgeon's console and closure of the incisions. ANESTHESIA: General anesthesia. ESTIMATED BLOOD LOSS: Approximately 10 mL. COMPLICATIONS: None. REMARKS: 49-year-old female having intermittent right upper quadrant and epigastric pain and discomfort related to a large stone at the neck of the gallbladder, was seen at the emergency room at some point. She is brought in today for laparoscopic cholecystectomy. PROCEDURE NOTE: large stone impacted at the neck the gallbladder. Tensely distended gallbladder with minimally thickened wall. DESCRIPTION OF PROCEDURE: Patient was given a dose Unasyn 3 g IV preoperatively for prophylaxis. She was given a dose of ICG 5 mg IV with 10 mL NS flush 45 minutes prior to the procedure. She was brought to the operating room, laid supine on the table, c ompression boots placed for DVT prophylaxis. General endotracheal anesthesia started. Her abdomen then prepped and draped in usual sterile fashion. We paused for a surgical timeout using both pre-incision safety checklist to verify correct patient, procedure site and additional clinical information prior to beginning the procedure. Entry to the abdomen done through a small incision at the left upper quadrant area. A Veress needle is inserted on a controlled fashion. CO2 insufflation started to pressure 15 mmHg. Using the same incision a 8 mm optical trocar was then placed under direct vision of laparoscope. The insertion site was inspected for injury and none was found. Patient was then positioned on a reverse trendelenburg position with her right side tilted up to further expose the gallbladder and gallbladder fossa and retract the bowels away from the area. I then placed 3 working ports under direct vision just to the left of the umbilicus and in a straight line at the right midclavicular area and right anterior axillary line in an oblique direction to triangulate the gallbladder and line up the instrument ports. Under laparoscopic guidance, the right lateral abdominal wall area at the transversus abdominis plane was infiltrated with local anesthesia. The da Herman Xi robotic tower was then maneuvered in place, the trochars were docked onto the robotic arms, the camera and instruments and up for the procedure. Operative findings: She has a smooth mildly enlarged liver. A small roughly about a 2 cm hemangioma was seen just lateral to the gallbladder. Gallbladder appears tensely distended. This was decompressed with an aspirating needle yielding clear viscous fluid consistent with hydrops of the gallbladder to allow for manipulation and retraction. There is a large roughly 36 cm stone impacted at the neck the gallbladder. Using ICG the cystic duct initially did not fluoresce with ma nipulation of the stone the cystic duct was able to be visualized also the course of the cystic duct to the common bile duct. I used an aspirating needle to decompress the gallbladder. For better manipulation and retraction. The fundus of the gallbladder was grasped and the gallbladder was elevated superiorly exposing the neck of the gallbladder. The neck of the gallbladder shows a large 3-4 cm impacted stone allowing for some difficulty in manipulating the area. Gallbladder wall is mildly and chronically thickened without any sign of any acute inflammation. The peritoneum overlying the area was opened up and dissected free both anteriorly and posteriorly to help with retraction of the gallbladder. The hepatocystic triangle was approached and dissected using a forced bipolar instrument and robotic hook cautery. The cystic duct was identified coming off from the neck gallbladder this was circumferentially dissected. The cystic artery was identified in its usual position medially behind a small lymph node of Calot. This was similarly circumferentially dissected off surrounding adipose tissue. We continued posterior dissection proximally at the neck of the gallbladder until a critical view of safety was achieved whereby only the previously identified duct and a rtery coursing through the neck the gallbladder. Using ICG and firefly imaging, the course of the cystic duct was easily visualized after manipulating the neck of the gallbladder thus there is evidence of cystic duct obstruction. The lower body and neck of the gallbladder was coming off the liver plate early that the gallbladder itself seems to be just adhered at the liver plate starting at the lower body of the gallbladder. I switched views with firefly to determine and visualized the course of the cystic duct, likewise the common bile duct. Photodocumentation was done of the critical view of safety. At this point the cystic artery was clipped 2 times and divided. After again checking her anatomy and verifying that the previously identified cystic duct with firefly view, this was also clipped 3 times and divided (2 hemoclips downstream and one Hemoclip upstream). The rest of the gallbladder was then dissected free of the gallbladder bed using Bovie cautery. There was no bleeding at the liver bed with midway through dissection the relatively thin-walled gallbladder at the fundus had small amount of bile leaking out. The gallbladder was detached from the liver plate and placed into an Endobag. I scrubbed back in. The gallbladder was extracted from the left upper quadrant port site with blunt enlargement of the trocar site using Mariana forceps. The fascial opening at the left upper quadrant was closed with Mykel-Kendy device using an 0 Vicryl stitch. The abdomen was deflated all ports were removed. The umbilical fascial defect repaired with 0 Vicryl in a mattress fashion. Rest of the skin incisions closed with 4-0 Monocryl in subcuticular fashion. Dermabond was used to cover the port site incisions Patient was awakened, extubated and brought to recovery room stable. . MYLES CHÁVEZ MD November 16, 2019 09:46
[2019-11-16] MEDS: PERCOCET 5MG/325MG TAB PO PRN ×2 (09:54→10:27)
[2019-11-16] MEDS: MORPHINE 2 MG/ML 1ML VIAL (J2270) IV PRN ×4 (09:55→10:22)
[2019-11-16 11:43] VITALS: BP 133/63
== END 2019-11-16 11:50 | disposition home or self-care (01) ==
LOC: M SDC 06:25
PROVIDERS: ATTEND Surgery
DX: K80.10 Calculus of gallbladder with chronic cholecystitis without obstruction (principal); K82.1 Hydrops of gallbladder; E03.9 Hypothyroidism, unspecified; K21.9 Gastro-esophageal reflux disease without esophagitis; F17.218 Nicotine dependence, cigarettes, with other nicotine-induced disorders; Z79.899 Other long term (current) drug therapy; Z88.0 Allergy status to penicillin; Z88.8 Allergy status to other drugs, medicaments and biological substances
CPT/HCPCS: 36415; 47562; 64488; 85027; 88304; J0131; J1100; J1885; J1956; J2250; J2270; J2370; J2405; J3010

== ENCOUNTER → 2019-11-26 | Outpatient (REF) | payer BC ==
[~2019-11-26] MED LIST changes: -LR 1,000 ML IV ONE; -LevoFLOXacin IV 500 MG in IV 1 EA IV ONE
[2019-11-26 14:55] LABS: MAGNESIUM LEVEL 2.1 MG/DL (1.8-2.4); THYROID STIMULATING HORMONE 0.244 uIU/ML (0.358-3.740)
[2019-11-27 16:02] LABS: FREE T4 1.1 NG/DL (0.76-1.46)
== END ==
LOC: M SFHCCLAY 08:32
PROVIDERS: ATTEND Family Medicine
DX: Z79.899 Other long term (current) drug therapy (principal); E03.9 Hypothyroidism, unspecified

== ENCOUNTER → 2020-05-09 | Outpatient (REF) | payer BC | LOC: M LAB REF 09:39 | PROVIDERS: ATTEND Physician Assistant | DX: J02.9 Acute pharyngitis, unspecified (principal) ==

== ENCOUNTER → 2020-05-31 | Outpatient (REF) | payer BC | LOC: M SFHCCLAY 07:14 | PROVIDERS: ATTEND Family Medicine | DX: E03.9 Hypothyroidism, unspecified (principal) ==

== ENCOUNTER → 2020-06-02 | Outpatient (CLI) | payer BC ==
--- NOTE | 2020-06-02 09:00 | REPMRS ---
Patient History The patient states she has not had a clinical breast exam in over a year. Family history of ovarian cancer under age 50 in maternal half sister. Benign US guided breast biopsy of the right breast, January 11, 2012. Took hormonal contraceptives for 1 year. 3D TOMOSYNTHESIS WAS PERFORMED. [facility] lifetime risk for breast cancer is 7.7%. Volpara breast density b. Digital Woman Screen Mammo: June 02, 2020 - Exam #: [id number] Bilateral CC and MLO view(s) were taken. Technologist: Yumiko Alaniz, Technologist Prior study comparison: April 01, 2019, bilateral digital woman screen mammo performed at [facility]. February 06, 2018, bilateral digital woman screen mammo performed at [facility]. FINDINGS: There are scattered fibroglandular densities. There has been no change in the appearance of the mammogram from the prior studies. There is a mild amount of residual fibroglandular tissue which is fairly symmetric. There is no interval development of dominant mass, architectural distortion, or clustered microcalcification suggestive of malignancy. Assessment: BI-RADS/ACR category 1 mammogram. Negative Mammogram. Recommendation Routine screening mammogram in 1 year (for women over age 40). This mammogram was interpreted with the aid of an FDA-approved computer-aided dectection system. Electronically Signed By: Jared Yo MD 06/02/20 [id number]
== END ==
LOC: M WHC 06:13
PROVIDERS: ATTEND Family Medicine
DX: Z12.31 Encounter for screening mammogram for malignant neoplasm of breast (principal)

== ENCOUNTER 2020-06-13 11:11 | Emergency (ER) | payer BC ==
[~2020-06-13] VITALS: Ht 162.6 cm; Wt 73.6 kg
[2020-06-13] MEDS ORDERED: NS 1,000 ML IV ONE (12:00)
[2020-06-13] MEDS ORDERED: dexameTHASONE 4 MG/ML 1ML VIAL (J1100 PER 1MG) IV ONE (12:00)
[2020-06-13] MEDS ORDERED: KETOROLAC 30 MG/ML 1ML VIAL IV ONE (12:00)
[2020-06-13] MEDS ORDERED: METOCLOPRAMIDE INJ 10MG/2ML VIAL (J2765 PER 1) IV ONE (12:00)
[2020-06-13] MEDS ORDERED: diphenhydrAMINE 50MG/ML VIAL (J1200) IV ONE (12:00)
--- NOTE | 2020-06-13 12:15 | REP ---
INDICATION: worst headache of life. COMPARISON: None. TECHNIQUE: Helical scanning is acquired. 5 mm axial images were reformatted. Coronal MPR images were generated. FINDINGS: Bone window settings demonstrate an intact bony calvarium. There is no evidence of skull fracture or incidental bony calvarial lesion. The visualized paranasal sinuses appear clear. No intraorbital abnormality is seen. On soft tissue window setting images; the lateral, third, and fourth ventricles are normal in size and position. Yo-white differentiation pattern is normal above and below the tentorium. There are is no evidence of intracranial hemorrhage. No mass, edema, infarction, or midline shift is seen. No extra-axial fluid collection is appreciated. IMPRESSION: Negative noncontrast head CT. <Electronically signed by Humphrey Parker > 06/13/20 [id number]
[2020-06-13 12:49] LABS: BASO # 0.1 10^3/uL (0.0-0.2); BASO % 0.7 % (0.0-1.0); EOS # 0.1 10^3/uL (0.0-0.5); EOS % 0.7 % (0.0-3.0); HEMOGLOBIN 12.9 g/dl (12.0-15.5); LYMPH # 1.2 10^3/uL (1.5-5.0); LYMPH % 16.8 % (24.0-44.0); MEAN CORPUSCULAR HEMOGLOBIN 30.5 pg (27.0-33.0); MEAN CORPUSCULAR HGB CONC 33.1 g/dl (32.0-36.5); MEAN CORPUSCULAR VOLUME 92.2 fl (80.0-96.0); MONO # 0.5 10^3/uL (0.0-0.8); MONO % 6.9 % (0.0-5.0); NEUTROPHILS # 5.3 10^3/uL (1.5-8.5); NEUTROPHILS % 74.5 % (36.0-66.0); PLATELET COUNT, AUTOMATED 271 10^3/uL (150-450); RED BLOOD COUNT 4.23 10^6/uL (4.00-5.40); WHITE BLOOD COUNT 7.1 10^3/uL (4.0-10.0)
[2020-06-13 13:09] LABS: BLOOD UREA NITROGEN 16 MG/DL (7-18); CALCIUM LEVEL 10.2 MG/DL (8.5-10.1); CARBON DIOXIDE LEVEL 28 MEQ/L (21-32); CHLORIDE LEVEL 105 MEQ/L (98-107); GLOMERULAR FILTRATION RATE > 60.0 (>51); GLUCOSE, FASTING 92 MG/DL (70-100); POTASSIUM SERUM 3.8 MEQ/L (3.5-5.1); SODIUM LEVEL 140 MEQ/L (136-145)
[2020-06-13 13:25] VITALS: BP 131/73
[2020-06-13 13:53] LABS: APPEARANCE, URINE CLEAR (CLEAR); BACTERIA, URINE AUTO 1+ (NEGATIVE); BILIRUBIN, URINE AUTO NEGATIVE (NEGATIVE); BLOOD, URINE BLOOD NEGATIVE (NEGATIVE); COLOR, URINE STRAW (YELLOW); GLUCOSE, URINE (UA) AUTO NEGATIVE (NEGATIVE); KETONE, URINE AUTO TRACE mg/dL (NEGATIVE); LEUKOCYTE ESTERASE, URINE AUTO 1+ (NEGATIVE); NITRITE, URINE AUTO NEGATIVE (NEGATIVE); PROTEIN, URINE AUTO NEGATIVE (NEGATIVE); RBC, URINE AUTO 1 /HPF (0-3); SPECIFIC GRAVITY URINE AUTO 1.003 (1.002-1.035); SQUAMOUS EPITHELIAL CELL UR AU 2 /HPF (0-6); UROBILINOGEN, URINE AUTO 0.2 mg/dL (0.0-2.0); WBC, URINE AUTO 1 /HPF (0-3)
== END 2020-06-13 13:50 | disposition home or self-care (01) ==
LOC: M ED 11:11
DX: R51.9 Headache, unspecified (principal); E03.9 Hypothyroidism, unspecified; E78.5 Hyperlipidemia, unspecified; Z87.891 Personal history of nicotine dependence; Z88.0 Allergy status to penicillin; Z79.899 Other long term (current) drug therapy
CPT/HCPCS: 70450; 80048; 81001; 85025; 96361; 96374; 96375; 99284; J1100; J1200; J1885; J2765

== ENCOUNTER → 2020-09-21 | Outpatient (REF) | payer BC ==
[2020-09-21 12:25] LABS: ALBUMIN 3.9 GM/DL (3.2-5.2); ALT/SGPT 20 U/L (12-78); BILIRUBIN,TOTAL 0.4 MG/DL (0.2-1.0); BLOOD UREA NITROGEN 15 MG/DL (7-18); CALCIUM LEVEL 9.5 MG/DL (8.5-10.1); CARBON DIOXIDE LEVEL 28 MEQ/L (21-32); CHLORIDE LEVEL 109 MEQ/L (98-107); CHOLESTEROL LEVEL 164 MG/DL (<200); CHOLESTEROL RISK RATIO 2.562 (<5); FREE T4 0.89 NG/DL (0.76-1.46); GLOMERULAR FILTRATION RATE > 60.0 (>51); GLUCOSE, FASTING 90 MG/DL (70-100); HDL CHOLESTEROL 64 MG/DL (>40); LDL CHOLESTEROL 76 MG/DL (<100); NON-HDL-C 100 MG/DL; POTASSIUM SERUM 4.1 MEQ/L (3.5-5.1); SODIUM LEVEL 143 MEQ/L (136-145); TOTAL PROTEIN 6.7 GM/DL (6.4-8.2); TRIGLYCERIDES LEVEL 122 MG/DL (<150)
== END ==
LOC: M SFHCCLAY 07:38
PROVIDERS: ATTEND Family Medicine
DX: E78.2 Mixed hyperlipidemia (principal); E03.9 Hypothyroidism, unspecified

== ENCOUNTER → 2020-11-09 | Outpatient (REF) | payer BC | LOC: M SFHCCLAY 11:08 | PROVIDERS: ATTEND Physician Assistant | DX: R50.9 Fever, unspecified (principal) ==

== ENCOUNTER → 2021-06-14 | Outpatient (REF) | payer BC ==
[~2021-06-14] MED LIST changes: -IBUP200T45 PO; +IBUP200T46 PO
[2021-06-14 18:12] LABS: GC DNA AMPLIFICATION NEGATIVE (NEGATIVE)
== END ==
LOC: M SFHCCAPE 10:30
PROVIDERS: ATTEND Physician Assistant
DX: Z20.2 Contact with and (suspected) exposure to infections with a predominantly sexual mode of transmission (principal)

== ENCOUNTER → 2021-10-10 | Outpatient (REF) | payer BC | LOC: M SFHCCLAY 09:55 | PROVIDERS: ATTEND Physician Assistant | DX: R30.0 Dysuria (principal) ==

== ENCOUNTER → 2021-11-16 | Outpatient (REF) | payer BC ==
[~2021-11-16] MED LIST changes: +METH-1165 PO; +NAPR-837 PO
[2021-11-16 13:21] LABS: CHOLESTEROL RISK RATIO 3.196 (<5); FREE T4 0.85 NG/DL (0.76-1.46); THYROID STIMULATING HORMONE 1.52 uIU/ML (0.358-3.740)
== END ==
LOC: M SFHCCLAY 09:24
PROVIDERS: ATTEND Family Medicine
DX: E03.9 Hypothyroidism, unspecified (principal); E78.2 Mixed hyperlipidemia

== ENCOUNTER → 2021-11-16 | Outpatient (CLI) | payer BC | LOC: M WHC 13:01 | PROVIDERS: ATTEND Family Medicine | DX: Z12.31 Encounter for screening mammogram for malignant neoplasm of breast (principal) ==

== ENCOUNTER → 2022-01-01 | Outpatient (CLI) | payer BC | LOC: M CLY 15:38 | PROVIDERS: ATTEND Family Medicine | DX: R06.89 Other abnormalities of breathing (principal) ==

== ENCOUNTER → 2022-07-27 | Outpatient (REF) | payer BC ==
[2022-07-27 18:03] LABS: APPEARANCE, URINE MANUAL HAZY (CLEAR); COLOR, URINE MANUAL YELLOW (YELLOW)
[2022-07-27 18:06] LABS: BILIRUBIN, URINE MANUAL NEGATIVE (NEGATIVE); BLOOD URINE MANUAL NEGATIVE (NEGATIVE); GLUCOSE, URINE (UA) MANUAL NEGATIVE (NEGATIVE); KETONE, URINE MANUAL NEGATIVE (NEGATIVE); LEUKOCYTE ESTERASE, URINE MAN POSITIVE (NEGATIVE); NITRITE, URINE MANUAL NEGATIVE (NEGATIVE); PH,URINE MAN 6.5 UNITS (5.0 - 7.0); PROTEIN, URINE MANUAL NEGATIVE (NEGATIVE); SPECIFIC GRAVITY,URINE MANUAL 1.015 (1.002-1.035); UROBILINOGEN, URINE MANUAL NORMAL (NORMAL)
[2022-07-27 18:17] LABS: BACTERIA, URINE MOD AMOUNT; HYALINE CAST, URINE NONE SEEN /lpf (0-1); MUCUS, URINE MOD AMOUNT (NEGATIVE); RBC, URINE 0-1 /hpf (0-3); SQUAMOUS EPITHELIAL CELL URINE SMALL AMOUNT /hpf (SMALL AMT); WBC, URINE TNTC /hpf (0-3)
== END ==
LOC: M SFHCCLAY 16:52
PROVIDERS: ATTEND Family Medicine
DX: R35.0 Frequency of micturition (principal)

== ENCOUNTER → 2022-09-14 | Outpatient (REF) | payer BC ==
[2022-09-14 18:39] LABS: ALBUMIN 3.8 G/DL (3.2-5.2); ALKALINE PHOSPHATASE 106 U/L (46-116); ALT/SGPT 53 U/L (7.0-40); AST/SGOT 27 U/L (<34); BILIRUBIN,TOTAL 0.4 MG/DL (0.3-1.2); BLOOD UREA NITROGEN 19 MG/DL (9-23); CARBON DIOXIDE LEVEL 27 MMOL/L (20-31); CHLORIDE LEVEL 107 MMOL/L (98-107); CHOLESTEROL LEVEL 156 MG/DL (<200); CHOLESTEROL RISK RATIO 2.85 (<5); CREATININE FOR GFR 0.85 MG/DL (0.55-1.30); FREE T4 1.18 NG/DL (0.89-1.76); GLOMERULAR FILTRATION RATE > 60.0 (>51); GLUCOSE, FASTING 88 MG/DL (60-100); HDL CHOLESTEROL 54.7 MG/DL (>40); LDL CHOLESTEROL 81.7 MG/DL (<100); NON-HDL-C 101 MG/DL; POTASSIUM SERUM 4.4 MMOL/L (3.5-5.1); SODIUM LEVEL 142 MMOL/L (136-145); THYROID STIMULATING HORMONE 0.385 uIU/ML (0.55-4.78); TOTAL PROTEIN 6.5 G/DL (5.7-8.2); TRIGLYCERIDES LEVEL 98 MG/DL (<150)
== END ==
LOC: M SFHCCLAY 09:32
PROVIDERS: ATTEND Nurse Practitioner Family
DX: E78.2 Mixed hyperlipidemia (principal); E03.9 Hypothyroidism, unspecified; I11.9 Hypertensive heart disease without heart failure

== ENCOUNTER → 2022-09-20 | Outpatient (REF) | payer BC ==
[2022-09-20 18:09] LABS: HEMATOCRIT 39.8 % (36.0-47.0); HEMOGLOBIN 13.3 g/dl (12.0-15.5); MEAN CORPUSCULAR HEMOGLOBIN 31.6 pg (27.0-33.0); MEAN CORPUSCULAR HGB CONC 33.4 g/dl (32.0-36.5); MEAN CORPUSCULAR VOLUME 94.5 fl (80.0-96.0); PLATELET COUNT, AUTOMATED 305 10^3/uL (150-450); RED BLOOD COUNT 4.21 10^6/uL (4.00-5.40); WHITE BLOOD COUNT 7.8 10^3/uL (4.0-10.0)
== END ==
LOC: M SFHCCLAY 10:52
PROVIDERS: ATTEND Nurse Practitioner Family
DX: R53.82 Chronic fatigue, unspecified (principal)

== ENCOUNTER → 2023-02-22 | Outpatient (CLI) | payer BC | LOC: M WHC 14:07 | PROVIDERS: ATTEND Nurse Practitioner Family | DX: Z12.31 Encounter for screening mammogram for malignant neoplasm of breast (principal) ==

== ENCOUNTER 2023-08-21 08:57 | Day surgery (SDC) | payer BC ==
[~2023-08-21] VITALS: Ht 162.6 cm; Wt 86.6 kg
[~2023-08-21 08:57] MED LIST changes: +APPL300T4 PO; +BACI1TAB20 PO; +CIDA500T2 PO
[2023-08-21] MEDS: NS 1,000 ML IV ONE (09:23)
[2023-08-21 10:26] VITALS: TEMP 96.9
[2023-08-21] MEDS ORDERED: propofoL 200 MG/20 ML VIAL As Ordered ONE (10:42)
[2023-08-21 10:51] VITALS: BP 132/91; O2SAT 95
== END 2023-08-21 10:53 | disposition home or self-care (01) ==
LOC: M OPP 08:57
PROVIDERS: ATTEND Surgery
DX: Z12.11 Encounter for screening for malignant neoplasm of colon (principal); Z86.010 Personal history of colon polyps; K64.9 Unspecified hemorrhoids; K57.30 Diverticulosis of large intestine without perforation or abscess without bleeding; Z79.02 Long term (current) use of antithrombotics/antiplatelets; Z79.1 Long term (current) use of non-steroidal anti-inflammatories (NSAID); Z79.890 Hormone replacement therapy; Z79.899 Other long term (current) drug therapy; Z88.1 Allergy status to other antibiotic agents

== ENCOUNTER → 2023-09-24 | Outpatient (REF) | payer BC ==
[2023-09-24 12:18] LABS: ALBUMIN 3.7 G/DL (3.2-5.2); ALKALINE PHOSPHATASE 123 U/L (46-116); ALT/SGPT 59 U/L (7.0-40); AST/SGOT 33 U/L (<34); BILIRUBIN,TOTAL 0.4 MG/DL (0.3-1.2); BLOOD UREA NITROGEN 19 MG/DL (9-23); CALCIUM LEVEL 8.5 MG/DL (8.5-10.1); CARBON DIOXIDE LEVEL 27 MMOL/L (20-31); CHLORIDE LEVEL 111 MMOL/L (98-107); CHOLESTEROL LEVEL 156 MG/DL (<200); CHOLESTEROL RISK RATIO 3.65 (<5); CREATININE FOR GFR 0.89 MG/DL (0.55-1.30); FREE T4 1.01 NG/DL (0.89-1.76); GLOMERULAR FILTRATION RATE > 60.0 (>51); GLUCOSE, FASTING 94 MG/DL (60-100); HDL CHOLESTEROL 42.7 MG/DL (>40); LDL CHOLESTEROL 84.1 MG/DL (<100); NON-HDL-C 113.3 MG/DL; POTASSIUM SERUM 4.4 MMOL/L (3.5-5.1); SODIUM LEVEL 142 MMOL/L (136-145); THYROID STIMULATING HORMONE 0.744 uIU/ML (0.55-4.78); TOTAL PROTEIN 6.4 G/DL (5.7-8.2); TRIGLYCERIDES LEVEL 146 MG/DL (<150)
== END ==
LOC: M SFHCCLAY 07:22
PROVIDERS: ATTEND Nurse Practitioner Family
DX: I10 Essential (primary) hypertension (principal); R53.82 Chronic fatigue, unspecified; E03.9 Hypothyroidism, unspecified; E78.2 Mixed hyperlipidemia

== ENCOUNTER → 2023-12-31 | Outpatient (CLI) | payer BC | LOC: M RAD 06:32 | PROVIDERS: ATTEND Nurse Practitioner Family | DX: Z87.891 Personal history of nicotine dependence (principal) ==

== ENCOUNTER → 2024-11-12 | Outpatient (REF) | payer BC ==
[2024-11-12 18:46] LABS: THYROID STIMULATING HORMONE 0.688 uIU/ML (0.55-4.78)
[2024-11-12 18:47] LABS: ALBUMIN 3.8 G/DL (3.2-5.2); BILIRUBIN,TOTAL 0.5 MG/DL (0.3-1.2); CALCIUM LEVEL 9.1 MG/DL (8.5-10.1); CHOLESTEROL RISK RATIO 3.11 (<5); CREATININE FOR GFR 0.81 MG/DL (0.55-1.30); FREE T4 1.28 NG/DL (0.89-1.76); GLOMERULAR FILTRATION RATE 85.1 (>51); HDL CHOLESTEROL 45.3 MG/DL (>40); LDL CHOLESTEROL 70.5 MG/DL (<100); NON-HDL-C 95.7 MG/DL; POTASSIUM SERUM 4.2 MMOL/L (3.5-5.1); TOTAL PROTEIN 6.9 G/DL (5.7-8.2)
== END ==
LOC: M SFHCCLAY 09:33
PROVIDERS: ATTEND Nurse Practitioner Family
DX: Z00.00 Encounter for general adult medical examination without abnormal findings (principal); E03.9 Hypothyroidism, unspecified; I10 Essential (primary) hypertension; E78.2 Mixed hyperlipidemia; F17.211 Nicotine dependence, cigarettes, in remission

== ENCOUNTER → 2025-02-05 | Outpatient (CLI) | payer BC ==
[~2025-02-05] MED LIST changes: -PRAV20TA2 PO; +PRAV20TA78 PO; -PRAV40TA2 PO; +PRAV40TA85 PO
[2025-02-05 12:28] LABS: ALT/SGPT 33 U/L (7.0-40); AST/SGOT 21 U/L (<34); C REACTIVE PROTEIN QUANTITATIV < 0.50 MG/DL (<1.0); CALCIUM LEVEL 9.2 MG/DL (8.5-10.1); CARBON DIOXIDE LEVEL 28 MMOL/L (20-31); CHLORIDE LEVEL 105 MMOL/L (98-107); CREATININE FOR GFR 0.91 MG/DL (0.55-1.30); GLOMERULAR FILTRATION RATE 74.0 (>51); POTASSIUM SERUM 4.9 MMOL/L (3.5-5.1); SODIUM LEVEL 146 MMOL/L (136-145)
[2025-02-05 12:29] LABS: RHEUMATOID FACTOR QUANT 5.9 IU/ML (<14)
[2025-02-05 12:30] LABS: BASO # 0.1 10^3/uL (0.0-0.2); BASO % 0.7 % (0.0-1.0); EOS # 0.1 10^3/uL (0.0-0.5); EOS % 1.5 % (0.0-3.0); LYMPH # 1.5 10^3/uL (1.5-5.0); LYMPH % 17.4 % (24.0-44.0); MONO # 0.6 10^3/uL (0.0-0.8); MONO % 7.2 % (2.0-8.0); NEUTROPHILS # 6.4 10^3/uL (1.5-8.5); NEUTROPHILS % 72.9 % (36.0-66.0); PLATELET COUNT, AUTOMATED 324 10^3/uL (150-450)
[2025-02-05 12:38] LABS: ERYTHROCYTE SEDIMENTATION RATE 12 mm/hr (0-30)
[2025-02-09 20:24] LABS: LYME TOTAL ANTIBODY CIA <= 0.90 Index (<=0.90)
== END ==
LOC: M WUC 08:41
PROVIDERS: ATTEND Physician Assistant
DX: M25.50 Pain in unspecified joint (principal)

== ENCOUNTER 2025-06-01 07:49 | Emergency (ER) | payer BC ==
[~2025-06-01] VITALS: Ht 162.6 cm; Wt 89.1 kg
[2025-06-01] MEDS: TETANUS/DIPHTH/ACEL. PERTUSSIS 0.5 ML SYR IM.IMMUN ONE (08:21)
[2025-06-01] MEDS: cefTRIAXone SOD 2 GM in DEXTROSE 5% (D5W) ADV/MINI-BAG 50 ML IV ONE (08:25)
[2025-06-01] MEDS: NS 500 ML IV ONE (09:18)
[2025-06-01] MEDS: MORPHINE 4 MG/ML 1 ML VIAL IV ONE (09:19)
[2025-06-01] MEDS: ONDANSETRON 4MG/2ML VIAL IV ONE (09:19)
[2025-06-01] MEDS ORDERED: VITA100066 PO (09:36)
[2025-06-01] MEDS ORDERED: COQ1200C3 PO (09:36)
[2025-06-01] MEDS ORDERED: AZO1CAP PO (09:36)
[2025-06-01] MEDS ORDERED: B-12100010 PO (09:36)
[2025-06-01] MEDS ORDERED: MULT-40 PO (09:36)
[2025-06-01] MEDS ORDERED: VITA90CA4 PO (09:36)
[2025-06-01] MEDS ORDERED: CARV6.25 PO (09:36)
[2025-06-01] MEDS ORDERED: IBUP80TA PO (09:36)
[2025-06-01] MEDS ORDERED: GLUCTAB7 PO (09:36)
[2025-06-01] MEDS ORDERED: HOME MED LIST COMPLETE! XX SCH (09:40)
[2025-06-01] MEDS: LIDOCAINE 2% MDV 20 ML VIAL SC ONE (10:15)
[2025-06-01 10:24] LABS: BASO # 0.1 10^3/uL (0.0-0.2); BASO % 1.0 % (0.0-1.0); EOS # 0.2 10^3/uL (0.0-0.5); EOS % 2.8 % (0.0-3.0); LYMPH # 1.6 10^3/uL (1.5-5.0); LYMPH % 27.6 % (24.0-44.0); MONO # 0.6 10^3/uL (0.0-0.8); MONO % 10.0 % (2.0-8.0); NEUTROPHILS # 3.4 10^3/uL (1.5-8.5); NEUTROPHILS % 58.3 % (36.0-66.0); PLATELET COUNT, AUTOMATED 290 10^3/uL (150-450)
[2025-06-01 10:34] LABS: CK-MB VALUE MASS < 1.0 NG/ML (<3.6)
[2025-06-01 10:37] LABS: ALT/SGPT 20 U/L (7.0-40); AST/SGOT 21 U/L (<34); CALCIUM LEVEL 8.2 MG/DL (8.5-10.1); CARBON DIOXIDE LEVEL 25 MMOL/L (20-31); CHLORIDE LEVEL 111 MMOL/L (98-107); CREATININE FOR GFR 0.91 MG/DL (0.55-1.30); GLOMERULAR FILTRATION RATE 73.6 (>51); POTASSIUM SERUM 4.5 MMOL/L (3.5-5.1); SODIUM LEVEL 145 MMOL/L (136-145)
[2025-06-01 10:39] LABS: FREE T4 1.03 NG/DL (0.89-1.76)
[2025-06-01 10:58] LABS: CPK CREATINE PHOSPHOKINASE 71 U/L (34-145)
[2025-06-01 11:12] LABS: CK-MB VALUE MASS < 1.0 NG/ML (<3.6)
[2025-06-01] MEDS: KETOROLAC 30 MG/ML 1 ML VIAL IV ONE (11:26)
[2025-06-01] MEDS: ACETAMINOPHEN *IV* 1,000 MG in IV 1 EA IV ONE (11:26)
[2025-06-01] MEDS: MAALOX 30 ML SUSP *UDC PO ONE (11:50)
[2025-06-01] MEDS: NS (Normal Saline) 0.9% 500 ML IV ONE (11:50)
[2025-06-01] MEDS ORDERED: HYDR-3713 PO (12:58)
[2025-06-01] MEDS ORDERED: CEPH500C PO (13:02)
[2025-06-01 13:14] LABS: CPK CREATINE PHOSPHOKINASE 78 U/L (34-145)
[2025-06-01 13:26] VITALS: BP 137/60; TEMP 97.3; O2SAT 97
== END 2025-06-01 14:06 | disposition home or self-care (01) ==
LOC: M ED 07:49
DX: S61.412A Laceration without foreign body of left hand, initial encounter (principal); S66.328A Laceration of extensor muscle, fascia and tendon of other finger at wrist and hand level, initial encounter; Y92.9 Unspecified place or not applicable; Y93.9 Activity, unspecified; Y99.9 Unspecified external cause status; W23.2XXA Caught, crushed, jammed or pinched between a moving and stationary object, initial encounter; R00.1 Bradycardia, unspecified; I10 Essential (primary) hypertension; E78.00 Pure hypercholesterolemia, unspecified; Z23 Encounter for immunization; Z88.1 Allergy status to other antibiotic agents; Z79.1 Long term (current) use of non-steroidal anti-inflammatories (NSAID); Z79.2 Long term (current) use of antibiotics; Z79.899 Other long term (current) drug therapy; Z79.810 Long term (current) use of selective estrogen receptor modulators (SERMs)
CPT/HCPCS: 12004; 29125; 73130; 80048; 80076; 82550; 82553; 83690; 83880; 84439; 84443; 84484; 85025; 90471; 90715; 93005; 93041; 94760; 96365; 96372; 96375; 99285; J0134; J0696; J1885; J2405

== ENCOUNTER 2025-06-07 10:17 | Day surgery (SDC) | payer BC ==
[~2025-06-07] VITALS: Ht 162.6 cm; Wt 92.4 kg
[~2025-06-07 10:17] MED LIST changes: +AZO1CAP PO; +B-12100010 PO; +CARV6.25 PO; +CEPH500C PO; +COQ1200C3 PO; +GLUCTAB7 PO; +HYDR-3713 PO; +MULT-40 PO; +VITA100066 PO; +VITA90CA4 PO
[2025-06-07] MEDS ORDERED: dexAMETHasone 4 MG/ML 1 ML VIAL As Ordered ONE (12:28)
[2025-06-07] MEDS ORDERED: ONDANSETRON 4MG/2ML VIAL As Ordered ONE (12:28)
[2025-06-07] MEDS ORDERED: LIDOCAINE 2% 100 MG/5 ML SDV (FOR ANES.) As Ordered ONE (12:28)
[2025-06-07] MEDS ORDERED: MIDAZOLAM INJ 2 MG/2 ML VIAL As Ordered ONE (12:29)
[2025-06-07] MEDS: ceFAZolin SOD 2 GM IV ONCE IV ONE (13:22)
[2025-06-07] MEDS ORDERED: SUGAMMADEX SODIUM 200 MG/2 ML VIAL As Ordered ONE (14:02)
[2025-06-07] MEDS ORDERED: ACETAMINOPHEN 1000MG/100ML IV BAG As Ordered ONE (14:02)
[2025-06-07] MEDS ORDERED: KETOROLAC 30 MG/ML 1 ML VIAL As Ordered ONE (14:27)
[2025-06-07] MEDS ORDERED: METOPROLOL 5 MG/5 ML VIAL As Ordered ONE (14:48)
[2025-06-07] MEDS ORDERED: CEPH500C PO (15:44)
[2025-06-07] MEDS ORDERED: PERC5TAB12 PO (15:44)
[2025-06-07] MEDS: ONDANSETRON 4MG/2ML VIAL IV PRN (16:10)
[2025-06-07] MEDS: MORPHINE 2 MG/ML 1 ML VIAL IV PRN (16:14)
[2025-06-07 16:54] VITALS: BP 161/79; TEMP 97.4; O2SAT 96
== END 2025-06-07 17:14 | disposition home or self-care (01) ==
LOC: M SDC 10:17
PROVIDERS: ATTEND Orthopaedic Surgery Hand Surgery
DX: S64.02XA Injury of ulnar nerve at wrist and hand level of left arm, initial encounter (principal); S61.215A Laceration without foreign body of left ring finger without damage to nail, initial encounter; S61.213A Laceration without foreign body of left middle finger without damage to nail, initial encounter; X58.XXXA Exposure to other specified factors, initial encounter; Y93.9 Activity, unspecified; Y92.9 Unspecified place or not applicable; E03.9 Hypothyroidism, unspecified; E78.00 Pure hypercholesterolemia, unspecified; Z79.899 Other long term (current) drug therapy; Z79.890 Hormone replacement therapy; Z88.1 Allergy status to other antibiotic agents; Z90.710 Acquired absence of both cervix and uterus
CPT/HCPCS: 26418; 64719; C1762; J0131; J0616; J0665; J0688; J1100; J1885; J2250; J2405; J3010

== ENCOUNTER → 2025-07-14 | Outpatient (CLI) | payer BC | LOC: M WHC 09:43 | PROVIDERS: ATTEND Orthopaedic Surgery | DX: M25.78 Osteophyte, vertebrae (principal); M16.12 Unilateral primary osteoarthritis, left hip; Z96.641 Presence of right artificial hip joint ==